=== PATIENT | female | born 1995 | race Caucasian/White ===

== ENCOUNTER 2018-06-07 01:40 | Emergency (ER) | payer BC, SELFPAY ==
[2018-06-07 01:44] VITALS: BP 116/68; PULSE 76; RESP 16; TEMP 36.8; O2SAT 100
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
[2018-06-07] MEDS: Ibuprofen 600 MG TAB PO (02:05)
== END 2018-06-07 02:12 | disposition home or self-care (01) ==
LOC: ER 02:09
PROVIDERS: Emergency Provider Emergency Medicine; PCP Registered Nurse
DX: M25.532 Pain in left wrist (principal)
CPT/HCPCS: 29125; 99283; 99282; L3908

== ENCOUNTER 2018-10-19 18:19 | Emergency (ER) | payer SELFPAY ==
[2018-10-19 18:29] VITALS: BP 97/50; PULSE 80; RESP 18; TEMP 36.9; O2SAT 100
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
[2018-10-19 20:01] VITALS: BP 106/72; PULSE 80; RESP 18; O2SAT 100
== END 2018-10-19 19:54 | disposition home or self-care (01) ==
PROVIDERS: Emergency Provider Student in an Organized Health Care Education/Training Program; PCP Registered Nurse
DX: O20.0 Threatened abortion (principal); Z3A.00 Weeks of gestation of pregnancy not specified
CPT/HCPCS: 36415; 86850; 86900; 86901; 99283